=== PATIENT | female | born 1990 | race African-American/Black ===

== ENCOUNTER 2021-05-13 02:25 | Emergency (ER) | payer SELFPAY ==
--- NOTE | 2021-05-13 13:26 | EDM.PDOC ---
ED HPI GENERAL MEDICAL PROBLEM - General Chief Complaint: ENT Problem Stated Complaint: COUGH,SORE THROAT Time Seen by Provider: 05/13/21 03:05 Source of Information: Reports: Patient History Limitations: Reports: No Limitations - History of Present Illness INITIAL COMMENTS - FREE TEXT/NARRATIVE: This patient presents to the emergency department for evaluation of cough and sore throat. She has been sick today only. She states she has been in contact with a individual who is Covid positive. She is requesting both strep and Covid testing. She states the cough has been mild and her sore throat has not been interfering with her ability to swallow or eat. She has a good appetite with no vomiting or diarrhea. She has not had a fever with this illness. She denies other concerns or complaints. - Related Data Allergies Allergy/AdvReac Type Severity Reaction Status Date / Time No Known Allergies Allergy Verified 05/13/21 03:55 Home Meds: Home Meds NK [No Known Home Meds] 05/13/21 [History] Past Medical History [employer] History: Reports: Social & Family History - Family History Family Medical History: No Pertinent Family History - Tobacco Use Tobacco Use Status *Q: Never Tobacco User - Caffeine Use Caffeine Use: Reports: None - Recreational Drug Use Recreational Drug Use: No ED ROS ENT - Review of Systems Review Of Systems: See Below Constitutional: Denies: Fever, Decreased Appetite HEENT: Reports: Throat Pain. Denies: Ear Discharge, Ear Pain, Eye Discharge, Eye Pain Respiratory: Reports: Cough. Denies: Shortness of Breath, Wheezing Cardiovascular: Reports: No Symptoms GI/Abdominal: Reports: No Symptoms Musculoskeletal: Reports: No Symptoms Skin: Reports: No Symptoms Neurological: Reports: No Symptoms ED EXAM, ENT - Physical Exam Exam: See Below Exam Limited By: No Limitations General Appearance: Alert, WD/WN, No Apparent Distress Eye Exam: Bilateral Eye: PERRL Ears: Normal External Exam Nose: Normal Inspection Mouth/Throat: Normal Inspection Head: Atraumatic, Normocephalic Neck: Normal Inspection, Non-Tender, Full Range of Motion Respiratory/Chest: No Respiratory Distress, Lungs Clear, Normal Breath Sounds, No Accessory Muscle Use Extremities: Normal Range of Motion Neurological: Alert, Oriented Psychiatric: Normal Affect Skin: Warm, Dry Course - Orders/Labs/Meds Labs: Laboratory Tests 05/13/21 Range/Units 03:50 SARS-CoV-2 RNA ([facility]) Negative (NEGATIVE) - Re-Assessments/Exams Free Text/Narrative Re-Assessment/Exam: 05/13/21 13:23 This patient presents to the emergency department for evaluation of cough and sore throat. History and clinical findings are most consistent with an upper respiratory tract infection. There are no signs at this point of other serious bacterial infection such as otitis media, retropharyngeal abscess, epiglottitis, peritonsillar abscess, strep pharyngitis, pneumonia, sinusitis, meningitis, or bacteremia. Given her clear lungs lack of fever, no hypoxia and no respiratory distress I do not believe the patient needs a chest x-ray at this point. Strep screen and Covid swabs were both negative. There are no concerning gastrointestinal symptoms at this point such as vomiting or diarrhea with no signs of dehydration. She was instructed to follow-up with her primary care provider in 3 to 4 days if she is not better, sooner if she is worse in any way. The patient was stable at the time of discharge Departure - Departure Time of Disposition: 03:45 Disposition: Home, Self-Care 01 Condition: Good Clinical Impression: URI (upper respiratory infection) - Discharge Information *PRESCRIPTION DRUG MONITORING PROGRAM REVIEWED*: Not Applicable Instructions: Upper Respiratory Infection, Adult, [id number] Forms: ED Department Discharge Sepsis Event Note (ED) - Evaluation Sepsis Screening Result: No Definite Risk
== END 2021-05-13 03:15 | disposition home or self-care (01) ==
LOC: LB.ED 02:25
DX: J06.9 Acute upper respiratory infection, unspecified (principal); Z20.822 Contact with and (suspected) exposure to COVID-19
CPT/HCPCS: 87430; 99283; U0002